=== PATIENT | male | born 1990 | race Caucasian/White ===

== ENCOUNTER 2018-06-09 20:03 | Emergency (ER) | payer SELFPAY ==
[2018-06-09 22:46] LABS: CALCIUM 9.1 mg/dL (8.5-10.1); CARBON DIOXIDE 27.9 mmol/L (21-32); CHLORIDE SERUM 103 mmol/L (98-107); GFR1 > 60 mL/min; GLUCOSE SERUM 113 mg/dL (74-106); POTASSIUM SERUM 3.9 mmol/L (3.5-5.1); SODIUM SERUM 140 mmol/L (136-145)
[2018-06-09 22:48] LABS: RED CELL DISTRIBUTION WIDTH 12.7 % (11.5-14.5)
[2018-06-09 22:51] LABS: ALKALINE PHOSPHATASE 111 U/L (46-116); ALT/SGPT 24 U/L (16-63); AST/SGOT 15 U/L (15-37); BILIRUBIN TOTAL 1.14 mg/dL (0.20-1.00); MAGNESIUM 1.8 mg/dL (1.8-2.4); PLATELET COUNT 407 x10^3mcL (130-400)
[2018-06-09 22:52] LABS: TOTAL PROTEIN, SERUM 8.6 g/dL (6.4-8.2)
[2018-06-09 23:17] LABS: BAND NEUTROPHIL 2 % (0-10); MONOCYTE 11 % (0-7); SEGMENTED NEUTROPHILS 81 % (37-75)
[2018-06-09 23:18] LABS: PLATELET MORPHOLOGY LARGE PLATELET SEEN; rbc morphology (normal/abnorm) NORMAL (NORMAL)
[2018-06-10 02:18] VITALS: BP 115/57
== END 2018-06-10 02:53 | disposition short-term general hospital (02) ==
LOC: ED 20:03
PROVIDERS: Emergency Medicine
DX: J39.0 Retropharyngeal and parapharyngeal abscess (principal)
CPT/HCPCS: J0295; J1100; J3490; J7030